=== PATIENT | female | born 1975 | race Hispanic/Latino ===

== ENCOUNTER 2016-08-15 08:50 | Emergency (ER) | payer OTHER ==
[2016-08-15] MEDS ORDERED: MOTRIN PO ONE (09:15)
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
--- NOTE | 2016-08-15 10:16 | Diag Imaging Result Document ---
PROCEDURE NAME: HEAD/C-SPINE W/O CONTRAST - 08/15/[address], 08/15/2016: A CT dose reduction protocol was used. COMPARISON: None. FINDINGS: The ventricles and sulci are normal in size and contour. There is no mass, hemorrhage, or evidence of acute ischemia. The bony calvaria is intact. The visualized paranasal sinuses and mastoid air cells are clear. IMPRESSION: Negative head CT. CT CERVICAL SPINE, 08/15/2016.: A CT dose reduction protocol was used. COMPARISON: None. FINDINGS: Alignment is anatomic. No fracture or subluxation. There is mild disk degeneration at C5-6. No significant central canal or neural foraminal stenosis. Soft tissues are clear. IMPRESSION: No acute disease. [facility]
[2016-08-15 10:46] VITALS: BP 120/75
== END 2016-08-15 10:46 | disposition home or self-care (01) ==
LOC: ED 08:50
DX: S06.0X0A Concussion without loss of consciousness, initial encounter (principal); R51 Headache; M54.2 Cervicalgia; H53.8 Other visual disturbances; R42 Dizziness and giddiness; M79.1 Myalgia; R11.0 Nausea; M62.838 Other muscle spasm; M62.830 Muscle spasm of back; E11.9 Type 2 diabetes mellitus without complications; Z79.899 Other long term (current) drug therapy; V89.2XXA Person injured in unspecified motor-vehicle accident, traffic, initial encounter
CPT/HCPCS: 70450; 72125; 81025